=== PATIENT | female | born 1970 ===

== ENCOUNTER → 2018-05-27 13:24 | Outpatient (REF) | payer OTHER, SELFPAY | LOC: LAB 13:24 | PROVIDERS: Visit Provider Physician Assistant | DX: R21 Rash and other nonspecific skin eruption (principal); D48.5 Neoplasm of uncertain behavior of skin; B07.8 Other viral warts; L53.8 Other specified erythematous conditions; L29.8 Other pruritus | CPT/HCPCS: 87070; 87077; 87205 ==